=== PATIENT | male | born 1935 | race Caucasian/White ===

== ENCOUNTER 2016-07-31 07:42 | Inpatient (IN) | payer MEDICARE, BC ==
[2016-07-19 11:14] VITALS: BP 116/81
[~2016-07-31] VITALS: Ht 165.1 cm; Wt 66.6 kg
[~2016-07-31 07:42] MED LIST: ASPI-496 PO; BUPIVACAINE/PF-EPI 0.25% 1:200K ONE; BUSP5TAB2 PO; CHOL200024 PO; DIVA250T4 PO; DONE10TA30 PO; Elavil PO; IPRA3AMP INH; LISI5TAB7 PO; MELA10CA PO; MULT-516 PO; OMEG1CAP12 PO; PRAV20TA PO; UBID100C24 PO
[2016-07-31] MEDS ORDERED: MIDAZOLAM 1 MG/ML, 2ML ONE (07:46)
[2016-07-31] MEDS ORDERED: FENTANYL PF 250 MCG/5ML ONE (07:47)
[2016-07-31] MEDS ORDERED: LACTATED RINGERS 1,000 ML IV SCH (09:05)
[2016-07-31] MEDS ORDERED: ONDANSETRON 2MG/ML, 2ML ONE (10:45)
[2016-07-31] MEDS ORDERED: GLYCOPYRROLATE 0.2MG/1ML ONE (10:45)
[2016-07-31] MEDS ORDERED: PROPOFOL 10 MG/ML, 20ML ONE (10:45)
[2016-07-31] MEDS ORDERED: ROCURONIUM 10 MG/ML ONE (10:45)
[2016-07-31] MEDS ORDERED: DEXAMETHASONE 4 MG/ML, 1ML ONE (10:45)
[2016-07-31] MEDS ORDERED: SUCCINYLCHOLINE 20 MG/ML, 10ML ONE (10:45)
[2016-07-31] MEDS ORDERED: CEFAZOLIN 1,000 MG ONE (10:45)
[2016-07-31] MEDS ORDERED: NEOSTIGMINE 1 MG/ML, 10ML ONE (10:45)
[2016-07-31] MEDS: LACTATED RINGERS 1,000 ML IV SCH (11:32)
[2016-07-31] MEDS: FAMOTIDINE 20 MG/2 ML IVPush SCH (12:00)
[2016-07-31] MEDS ORDERED: DIPHENHYDRAMINE 50 MG/ML, 1ML IVPush PRN (12:00)
[2016-07-31] MEDS ORDERED: hydrALAzine 20 MG/ML, 1ML IVPush PRN (12:00)
[2016-07-31] MEDS ORDERED: ENALAPRILAT 1.25 MG/ML, 2ML IVPush PRN (12:00)
[2016-07-31] MEDS ORDERED: LORazepam 0.5MG TABLET PO PRN (12:00)
[2016-07-31] MEDS ORDERED: CEFAZOLIN PMX 1GM/50ML 50 ML IVPB SCH (12:00)
[2016-07-31] MEDS ORDERED: LORazepam 2 MG/ML, 1ML IVPush PRN (12:00)
[2016-07-31] MEDS ORDERED: DIPHENHYDRAMINE 25 MG CAPSULE PO PRN (12:00)
[2016-07-31] MEDS ORDERED: ONDANSETRON 2MG/ML, 2ML IVPush PRN (12:00)
[2016-07-31] MEDS ORDERED: HYDROcodone/APAP 7.5-325MG/15ML UDC ONE (12:20)
[2016-07-31] MEDS: HYDROcodone/APAP 5/325 TABLET PO PRN ×2 (12:22→17:48)
[2016-07-31] MEDS ORDERED: FENTANYL PF 100 MCG/2ML ONE (12:25)
[2016-07-31] MEDS: FENTANYL PF 100 MCG/2ML IV PRN ×2 (12:27→12:35)
[2016-07-31] MEDS: FAMOTIDINE 20 MG TABLET PO SCH (14:13)
[2016-07-31] MEDS ORDERED: MORPHINE SULFATE 4 MG/ML, 1ML ONE (15:16)
[2016-07-31] MEDS: morphine SULFATE 10 MG/ML, 1ML IVPush PRN (15:26)
[2016-07-31 16:26] VITALS: BP 133/81
[2016-07-31 20:37] VITALS: BP 151/85
[2016-07-31] MEDS: BUSPIRONE 5 MG TABLET PO SCH (21:25)
[2016-07-31] MEDS: CEFAZOLIN PMX 1GM/50ML 50 ML IVPB SCH (21:25)
[2016-08-01] MEDS: FAMOTIDINE 20 MG/2 ML IVPush SCH ×2 (01:15→11:34)
[2016-08-01 02:14] VITALS: BP 144/76
[2016-08-01] MEDS: LACTATED RINGERS 1,000 ML IV SCH (02:42)
[2016-08-01] MEDS: CEFAZOLIN PMX 1GM/50ML 50 ML IVPB SCH (02:47)
[2016-08-01 04:46] LABS: BLOOD UREA NITROGEN 11 mg/dL (7-18)
[2016-08-01] MEDS ORDERED: ALBUTEROL SULFATE 2.5 MG/3 ML NPPB PRN (07:30)
[2016-08-01 07:59] VITALS: BP 152/81
[2016-08-01] MEDS: BUSPIRONE 5 MG TABLET PO SCH (08:56)
[2016-08-01] MEDS ORDERED: LISINOPRIL 5 MG TABLET PO SCH (09:00)
[2016-08-01] MEDS ORDERED: DONEPEZIL 10 MG TABLET PO SCH (09:00)
[2016-08-01] MEDS ORDERED: PRAVASTATIN 20 MG TABLET PO SCH (09:00)
[2016-08-01] MEDS ORDERED: ENOXAPARIN 40 MG/0.4 ML SQ SCH (09:00)
[2016-08-01] MEDS: HYDROcodone/APAP 5/325 TABLET PO PRN (09:31)
[2016-08-01] MEDS: FAMOTIDINE 20 MG TABLET PO SCH ×2 (10:30)
[2016-08-01] MEDS ORDERED: MORPHINE SULFATE 4 MG/ML, 1ML ONE (12:25)
[2016-08-01] MEDS: morphine SULFATE 10 MG/ML, 1ML IVPush PRN (12:29)
[2016-08-01 13:14] VITALS: BP 144/78
[2016-08-01] MEDS ORDERED: HYDR-3240 PO (14:33)
== END 2016-08-01 15:15 | disposition home or self-care (01) | DRG 165 ==
LOC: ORIP 07:42 → MERGE 10:00 → 3NW 16:21
PROVIDERS: ADMIT Thoracic Surgery (Cardiothoracic Vascular Surgery); ATTEND Thoracic Surgery (Cardiothoracic Vascular Surgery)
PROC: 0W9930Z Drainage of Right Pleural Cavity with Drainage Device, Percutaneous Approach (ICD-10-PCS; 2016-07-31)
PROC: 0BBC4ZZ Excision of Right Upper Lung Lobe, Percutaneous Endoscopic Approach (ICD-10-PCS; principal; 2016-07-31 10:00)
DX: C34.11 Malignant neoplasm of upper lobe, right bronchus or lung (principal); H54.41 Blindness, right eye, normal vision left eye; Z82.49 Family history of ischemic heart disease and other diseases of the circulatory system; J43.9 Emphysema, unspecified
CPT/HCPCS: 36415; 71010; 80048; 85025; 86850; 86900; 86923; 88309; C1729; J0690; J1100; J1650; J2250; J2405; J2704; J2710; J3010; J3490; J0330; J2270; J7120; S0028